=== PATIENT | male | born 1950 | race Caucasian/White ===

== ENCOUNTER → 2024-06-03 10:16 | Outpatient (CLI) | payer MEDICARE, SELFPAY ==
--- NOTE | 2024-06-03 10:21 | DI.MRI.S_ITS ---
PROCEDURE: MR CERVICAL SPINE WO CON INDICATIONS: HEADACHE-- TECHNIQUE: Noncontrast sagittal T1 spin echo and T2 fast spin echo, sagittal STIR, foraminal oblique sagittal T2 fast spin echo, and axial gradient echo or T2 fast spin echo through the cervical spine. COMPARISON: None. FINDINGS: Image quality: Excellent. Alignment and Curvature: There is normal bony alignment. Bone Marrow: Marrow demonstrates normal overall signal. Spinal Cord: Visualized spinal cord has normal size and signal. No cerebellar tonsillar herniation. Paraspinous Soft Tissues: No paravertebral masses. Prevertebral soft tissues are normal in thickness. C2-C3: Mild uncovertebral joint and facet hypertrophy. No significant spinal canal stenosis or neural foraminal narrowing. C3-C4: Disc desiccation with posterior disc-osteophyte complex and bilateral uncovertebral joint and facet hypertrophy. Findings result in mild narrowing of the spinal canal with partial effacement of the ventral CSF space as well as [id number] left and mild right neural foraminal narrowing. C4-C5: Disc desiccation with posterior disc-osteophyte complex and bilateral uncovertebral joint and facet hypertrophy. Findings result in minimal narrowing of the spinal canal as well as moderate bilateral neural foraminal narrowing. C5-C6: Disc desiccation with posterior disc-osteophyte complex and bilateral uncovertebral joint and facet hypertrophy. Findings result in mild narrowing of the spinal canal with partial effacement of the ventral CSF space as well as severe right and moderate left neural foraminal narrowing. C6-C7: Disc desiccation with posterior disc-osteophyte complex and bilateral uncovertebral joint and facet hypertrophy. Findings result in moderate right and moderate to severe left neural foraminal narrowing without significant spinal canal stenosis. C7-T1: Bilateral uncovertebral joint and facet hypertrophy. Findings result in mild right neural foraminal narrowing without significant left neural foraminal narrowing or spinal canal stenosis. IMPRESSION: 1. Multilevel degenerative disc disease, uncovertebral hypertrophy, and facet hypertrophy as described in detail in the body of the report. 2. No high-grade spinal canal stenosis. 3. Multifocal neural foraminal narrowing, most notably and severe at the C5-6 level on the right and moderate to severe at the C6-7 level on the left. Approved by: Shamir Pringle M.D. on 06/04/2024 at 10:55
== END ==
LOC: MRI 10:20
DX: R51.9 Headache, unspecified (principal); M50.30 Other cervical disc degeneration, unspecified cervical region; M47.812 Spondylosis without myelopathy or radiculopathy, cervical region
CPT/HCPCS: 72141

== ENCOUNTER → 2024-06-04 19:48 | Outpatient (CLI) | payer MEDICARE, SELFPAY ==
--- NOTE | 2024-06-04 | DI.MRI.S_ITS ---
PROCEDURE: MR HEAD/BRAIN WO/W CON INDICATIONS: HEADACHE TECHNIQUE: Noncontrast axial T1 spin echo, axial T2 fast spin echo, sagittal and axial FLAIR, coronal T2 fast spin echo, axial gradient echo, axial diffusion and ADC through the brain. After the administration of contrast, axial and coronal and sagittal 3D VIBE or T1 spin echo with fat saturation through the brain. COMPARISON: None. FINDINGS: Image quality: Excellent. CSF Spaces: Basal cisterns are patent. No extra-axial fluid collections. Ventricles are normal in size and shape. Brain: No midline shift. No intracranial bleeds or masses. There is mild, diffuse cerebral volume loss. There are mild periventricular and subcortical white matter chronic microvascular ischemic changes. No abnormal intracranial enhancement. The brainstem appears normal. Diffusion-weighted images demonstrate no acute infarct. No chronic ischemic insults. Normal intravascular flow voids are present. Skull and face: Calvarial marrow is normal in signal. Orbits appear normal. Sinuses: Sinuses and mastoids appear clear. IMPRESSION: No acute intracranial disease process. Dictated by: Amanda Chinchilla MD, PhD on 06/05/2024 at 10:27 Approved by: Amanda Chinchilla MD, PhD on 06/05/2024 at 10:31
== END ==
LOC: MRI 19:49
DX: R51.9 Headache, unspecified (principal)
CPT/HCPCS: 70553; A9579